=== PATIENT | female | born 1980 | race Caucasian/White ===

== ENCOUNTER 2021-06-25 15:39 | Emergency (ER) | payer BC, OTHER ==
[~2021-06-25] VITALS: Ht 167.6 cm; Wt 70.8 kg
[2021-06-25 16:19] LABS: HEMOGLOBIN 12.1 gm/dl (12.3-15.3); RED BLOOD COUNT 4.02 M/UL (4.00-5.10); WHITE BLOOD COUNT 4.1 K/UL (4.5-11.0)
[2021-06-25 16:44] LABS: BUN/CREATININE RATIO 16 (0-10)
== END 2021-06-25 18:59 | disposition home or self-care (01) ==
LOC: ER1 15:39
PROVIDERS: Physician Assistant
DX: Z23 Encounter for immunization (principal); U07.1 COVID-19
CPT/HCPCS: 71045; 80053; 85025; 93005; 99284; M0243